=== PATIENT | male | born 1975 | race Caucasian/White ===

== ENCOUNTER 2017-05-24 20:21 | Emergency (ER) | payer BC ==
--- NOTE | 2017-05-24 21:38 | ED ---
Extremity Problem HPI - General Chief complaint: Extremity Problem,Nontraumatic Stated complaint: foot swelling/tingling Time Seen by Provider: 05/24/17 21:04 Source: patient, family Mode of arrival: ambulatory Limitations: no limitations - History of Present Illness Initial comments: 's patient is a 42-year-old man who presents to be evaluated for the complaint of bilateral lower extremity swelling (left greater than right) and tingling of the toes and fingers. The patient states that the symptoms have been coming on over the course of today. He denies other symptoms. The patient states that starting couple of days ago he had developed some back pain, he was seen here 2 days ago and told that he had sciatica and was given medication which has helped with the back pain, but then today he noted that when he took his socks off he had swelling of the lower parts of the legs and feet, which was greater on the left than right. Patient denies chest pain, abdominal pain, fevers or chills, cough, dyspnea, hemoptysis, palpitations or syncope. MD Complaint: extremity swelling Onset/Timin -: days(s) Location: bilateral lower extremity (Left greater than right) History of Same: No Radiation: none Quality: other (Tingling) Consistency: constant Improves with: nothing Worsens with: nothing Associated Symptoms: denies other symptoms - Related Data Home Medications Medication Instructions Recorded Confirmed Aspirin 81 mg PO DAILY 05/22/17 05/24/17 Hydrocodone/Acetaminophen [[place] 1 tab PO Q4HR PRN 05/24/17 05/24/17 5-325] Previous Rx's Medication Instructions Recorded Ibuprofen [Motrin] 600 mg PO Q6HR PRN #20 tab 05/22/17 Orphenadrine [Norflex] 100 mg PO Q12H #20 tablet.er 05/22/17 Allergies Allergy/AdvReac Type Severity Reaction Status Date / Time No Known Allergies Allergy Verified 05/24/17 20:40 Review of Systems ROS Statement: Those systems with pertinent positive or pertinent negative responses have been documented in the HPI. ROS Other: All systems not noted in ROS Statement are negative. Constitutional: Denies: fever, chills, weakness Respiratory: Denies: cough, dyspnea, hemoptysis Cardiovascular: Reports: as per HPI, edema. Denies: chest pain, palpitations, orthopnea, syncope Gastrointestinal: Denies: abdominal pain, nausea, vomiting Genitourinary: Denies: dysuria, frequency Musculoskeletal: Denies: back pain Skin: Denies: rash, lesions Neurological: Reports: as per HPI, paresthesias. Denies: headache, weakness, numbness Past Medical History Past Medical History: No Reported History History of Any Multi-Drug Resistant Organisms: None Reported Additional Past Surgical History / Comment(s): right eye surgery Past Psychological History: No Psychological Hx Reported Smoking Status: Never smoker Past Alcohol Use History: Occasional Past Drug Use History: None Reported General Exam Limitations: no limitations General appearance: alert, in no apparent distress Head exam: Present: atraumatic, normocephalic Eye exam: Present: normal appearance. Absent: scleral icterus, conjunctival injection Respiratory exam: Present: normal lung sounds bilaterally. Absent: respiratory distress, wheezes, rales, rhonchi, stridor Cardiovascular Exam: Present: regular rate, normal rhythm, normal heart sounds GI/Abdominal exam: Present: soft. Absent: distended, tenderness, guarding, rebound Extremities exam: Present: pedal edema (There is some bilateral edema of the lower portion of the lower legs which is greater on left than right.) Neurological exam: Present: alert. Absent: motor sensory deficit Skin exam: Present: warm, dry, intact, normal color. Absent: rash Course Vital Signs 05/24/17 05/25/17 05/25/17 20:30 00:00 01:16 Temperature 98.7 F 98.8 F 98.5 F Pulse Rate 85 67 68 Respiratory 18 18 20 Rate Blood Pressure 192/101 171/93 188/97 O2 Sat by Pulse 97 95 94 L Oximetry Medical Decision Making - Medical Decision Making patient's 42-year-old man with bilateral lower extremity swelling, left greater than right and also with paresthesias. His initial workup negative. Patient is given 1 dose of Lasix and to follow up with his primary physician for further evaluation and therapy. - Lab Data Result diagrams: 05/24/17 21:59 05/24/17 21:59 Lab Results 05/24/17 05/24/17 05/24/17 Range/Units 21:59 21:59 21:59 WBC 9.1 (3.8-10.6) k/uL RBC 5.31 (4.30-5.90) m/uL Hgb 14.2 (13.0-17.5) gm/dL Hct 43.5 (39.0-53.0) % MCV 81.9 (80.0-100.0) fL MCH 26.8 (25.0-35.0) pg MCHC 32.7 (31.0-37.0) g/dL RDW 14.6 (11.5-15.5) % Plt Count 270 (150-450) k/uL Neutrophils % 67 % Lymphocytes % 25 % Monocytes % 4 % Eosinophils % 2 % Basophils % 1 % Neutrophils # 6.1 (1.3-7.7) k/uL Lymphocytes # 2.3 (1.0-4.8) k/uL Monocytes # 0.4 (0-1.0) k/uL Eosinophils # 0.2 (0-0.7) k/uL Basophils # 0.1 (0-0.2) k/uL PT (9.0-12.0) sec INR (<1.2) APTT (22.0-30.0) sec Sodium 141 (137-145) mmol/L Potassium 4.1 (3.5-5.1) mmol/L Chloride 107 (98-107) mmol/L Carbon Dioxide 24 (22-30) mmol/L Anion Gap 10 mmol/L BUN 15 (9-20) mg/dL Creatinine 0.78 (0.66-1.25) mg/dL Est GFR (MDRD) Af Amer >60 (>60 ml/min/1.73 sqM) Est GFR (MDRD) Non-Af >60 (>60 ml/min/1.73 sqM) Glucose 125 H (74-99) mg/dL Calcium 9.3 (8.4-10.2) mg/dL Magnesium 1.9 (1.6-2.3) mg/dL Total Bilirubin 0.3 (0.2-1.3) mg/dL AST 24 (17-59) U/L ALT 37 (21-72) U/L Alkaline Phosphatase 65 (38-126) U/L NT-Pro-B Natriuret Pep 189 pg/mL Total Protein 7.5 (6.3-8.2) g/dL Albumin 4.2 (3.5-5.0) g/dL 05/24/17 Range/Units 21:59 WBC (3.8-10.6) k/uL RBC (4.30-5.90) m/uL Hgb (13.0-17.5) gm/dL Hct (39.0-53.0) % MCV (80.0-100.0) fL MCH (25.0-35.0) pg MCHC (31.0-37.0) g/dL RDW (11.5-15.5) % Plt Count (150-450) k/uL Neutrophils % % Lymphocytes % % Monocytes % % Eosinophils % % Basophils % % Neutrophils # (1.3-7.7) k/uL Lymphocytes # (1.0-4.8) k/uL Monocytes # (0-1.0) k/uL Eosinophils # (0-0.7) k/uL Basophils # (0-0.2) k/uL PT 9.8 (9.0-12.0) sec INR 1.0 (<1.2) APTT 25.2 (22.0-30.0) sec Sodium (137-145) mmol/L Potassium (3.5-5.1) mmol/L Chloride (98-107) mmol/L Carbon Dioxide (22-30) mmol/L Anion Gap mmol/L BUN (9-20) mg/dL Creatinine (0.66-1.25) mg/dL Est GFR (MDRD) Af Amer (>60 ml/min/1.73 sqM) Est GFR (MDRD) Non-Af (>60 ml/min/1.73 sqM) Glucose (74-99) mg/dL Calcium (8.4-10.2) mg/dL Magnesium (1.6-2.3) mg/dL Total Bilirubin (0.2-1.3) mg/dL AST (17-59) U/L ALT (21-72) U/L Alkaline Phosphatase (38-126) U/L NT-Pro-B Natriuret Pep pg/mL Total Protein (6.3-8.2) g/dL Albumin (3.5-5.0) g/dL Disposition Clinical Impression: Edema, Paresthesias Disposition: HOME SELF-CARE Condition: Fair Instructions: Leg Edema (ED) Referrals: Kike Cano MD [Primary Care Provider] - 1-2 days
[2017-05-24 22:11] LABS: Basophils # (A) 0.1 k/uL (0-0.2); Basophils % (A) 1 %; CH 27.4; CHCM 33.6; Eosinophils # (A) 0.2 k/uL (0-0.7); Eosinophils % (A) 2 %; HCT 43.5 % (39.0-53.0); HDW 2.48; HGB 14.2 gm/dL (13.0-17.5); Luc # (Auto) 0.13; Luc % (Auto) 1; Lymphocytes # (A) 2.3 k/uL (1.0-4.8); Lymphocytes % (A) 25 %; MCH 26.8 pg (25.0-35.0); MCHC 32.7 g/dL (31.0-37.0); MCV 81.9 fL (80.0-100.0); Mean Platelet Volume 6.9; Monocytes # (A) 0.4 k/uL (0-1.0); Monocytes % (A) 4 %; Neutrophils # (A) 6.1 k/uL (1.3-7.7); Neutrophils % (A) 67 %; RBC 5.31 m/uL (4.30-5.90); RDW 14.6 % (11.5-15.5); WBC 9.1 k/uL (3.8-10.6); WBC (Perox) 9.06
[2017-05-24 22:22] LABS: ALT 37 U/L (21-72); AST 24 U/L (17-59); Alkaline Phosphatase 65 U/L (38-126); Anion Gap 10 mmol/L; Blood Urea Nitrogen 15 mg/dL (9-20); Calcium 9.3 mg/dL (8.4-10.2); Carbon Dioxide 24 mmol/L (22-30); Chloride 107 mmol/L (98-107); Glucose 125 mg/dL (74-99); Magnesium 1.9 mg/dL (1.6-2.3); Non-African American GFR(MDRD) >60 (>60 ml/min/1.73 sqM); Potassium 4.1 mmol/L (3.5-5.1); Sodium 141 mmol/L (137-145); Total Bilirubin 0.3 mg/dL (0.2-1.3); Total Protein 7.5 g/dL (6.3-8.2)
--- NOTE | 2017-05-24 23:30 | US ---
EXAMINATION TYPE: US venous doppler duplex LE BI DATE OF EXAM: 05/24/2017 11:06 PM COMPARISON: NONE CLINICAL HISTORY: swelling. SIDE PERFORMED: Bilateral TECHNIQUE: The lower extremity deep venous system is examined utilizing real time linear array sonog micaela with graded compression, doppler sonography and color-flow sonography. VESSELS IMAGED: External Iliac Vein (EIV) Common Femoral Vein Deep Femoral Vein Greater Saphenous Vein * Femoral Vein Popliteal Vein Small Saphenous Vein * Proximal Calf Veins (* superficial vessels) Exam limited due to body habitus Right Leg: Negative for DVT Left Leg: Positive for DVT No evidence of DVT bilateral legs IMPRESSION: Negative exam. No evidence of deep venous thrombosis in both legs.
[2017-05-24] MEDS ORDERED: HEPARIN SODIUM,PORCINE/D5W PMX 25,000 UNIT in DEXTROSE/WATER 1 500ML.BAG IV SCH (23:45)
[2017-05-24] MEDS ORDERED: HEPARIN SODIUM,PORCINE 5,000 UNIT/ML 1 ML VIAL IV PRN (23:59)
[2017-05-24] MEDS ORDERED: HEPARIN SODIUM,PORCINE 10,000 UNIT/ML 1 ML VIAL IV ONE (23:59)
[2017-05-25 00:36] LABS: Partial Thromboplastin Time 25.2 sec (22.0-30.0); Prothrombin Time 9.8 sec (9.0-12.0)
[2017-05-25] MEDS ORDERED: FUROSEMIDE 10 MG/ML 2 ML VIAL IV STA (00:48)
[2017-05-25 01:19] VITALS: BP 188/97; PULSE 68; RESP 20; TEMP 98.5
== END 2017-05-25 01:20 | disposition home or self-care (01) ==
LOC: EC 20:21
DX: R60.0 Localized edema (principal); R20.2 Paresthesia of skin; Z79.82 Long term (current) use of aspirin
CPT/HCPCS: 36415; 83880; 80053; 83735; 85025; 85610; 85730; 93970; 99284; 96374; J1940

== ENCOUNTER → 2017-06-06 | Outpatient (CLI) | payer BC ==
--- NOTE | 2017-06-07 11:25 | ECHOF ---
Referral Reason:I10 Hypertention MEASUREMENTS -------- HEIGHT: 177.8 cm WEIGHT: 170.1 kg BP: 174/96 RVIDd: 3.1 cm (< 3.3) IVSd: 1.3 cm (0.6 - 1.1) LVIDd: 3.1 cm (3.9 - 5.3) LVPWd: 1.3 cm (0.6 - 1.1) IVSs: 1.7 cm LVIDs: 1.7 cm LVPWs: 1.4 cm LAESV Index (A-L): 20.20 ml/m Ao Diam: 3.2 cm (2.0 - 3.7) AV Cusp: 2.0 cm (1.5 - 2.6) LA Diam: 3.7 cm (2.7 - 3.8) MV E Sreekanth: 1.10 m/s MV DecT: 279 ms MV A Sreekanth: 0.89 m/s MV E/A Ratio: 1.24 RAP: 5.00 mmHg RVSP: 11.51 mmHg FINDINGS -------- Sinus rhythm with extra systolic beats. This was a technically difficult study with suboptimal views. The left ventricular size is normal. There is mild concentric left ventricular hypertrophy. Overa ll left ventricular systolic function is normal with, an EF between 60 - 65 %. The right ventricle is normal in size and function. Normal LA size by volume 22+/-6 ml/m2. The right atrium is normal in size. 1.5mg of Definity was utilized for enhancement of images Aortic valve is trileaflet and is mildly thickened. There is no evidence of aortic regurgitation. There is no evidence of aortic stenosis. The mitral valve leaflets are mildly thickened. There is trace mitral regurgitation. Trace tricuspid regurgitation present. Right ventricular systolic pressure is normal at < 35 mmHg. There is no evidence of pulmonary hypertension. The pulmonic valve was not well visualized. The aortic root size is normal. Normal inferior vena cava with normal inspiratory collapse consistent with estimated right atrial pre ssure of 5 mmHg. The pericardium is normal. There is no pericardial effusion. CONCLUSIONS -------- 1. Sinus rhythm with extra systolic beats. 2. This was a technically difficult study with suboptimal views. 3. The left ventricular size is normal. 4. There is mild concentric left ventricular hypertrophy. 5. Overall left ventricular systolic function is normal with, an EF between 60 - 65 %. 6. Normal LA size by volume 22+/-6 ml/m2. 7. 1.5mg of Definity was utilized for enhancement of images 8. Aortic valve is trileaflet and is mildly thickened. 9. The mitral valve leaflets are mildly thickened. 10. There is trace mitral regurgitation. 11. Trace tricuspid regurgitation present. 12. Right ventricular systolic pressure is normal at < 35 mmHg. 13. There is no evidence of pulmonary hypertension. 14. The pulmonic valve was not well visualized. 15. The aortic root size is normal. 16. There is no pericardial effusion. CANADIAN BACON TIER: Benito Cortez RDCS
== END | disposition home or self-care (01) ==
LOC: RADECHMAIN 16:08
PROVIDERS: ATTEND Family Medicine
DX: I08.1 Rheumatic disorders of both mitral and tricuspid valves (principal); I10 Essential (primary) hypertension
CPT/HCPCS: 93306; Q9957

== ENCOUNTER → 2020-07-15 | Outpatient (CLI) | payer BC ==
--- NOTE | 2020-07-15 23:36 | CONS ---
CONSULTATION DATE OF SERVICE: 07/15/2020 45-year-old gentleman has been evaluated in Sleep Center for possible obstructive sleep apnea-hypopnea syndrome. 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 HISTORY OF PRESENT ILLNESS SLEEP WAKE EVALUATION: SLEEP SCHEDULE: Patient usual sleep schedule is from 9 p.m. to 5 a.m. FALLING ASLEEP: No problems with falling asleep. No TV in bedroom. DURING SLEEP: He sleeps in different positions. According to the patient, he snores occasionally and maybe wakes up from sleep 1 time. No history of hypnagogic hallucinations, sleep paralysis or cataplexy. [place] Sleepiness Scale is 0. DURING THE DAY/SLEEP WAKE EVALUATION: Patient does not take naps during the day. PAST MEDICAL HISTORY: Positive for restriction of nasal breathing and asthma. MEDICATIONS: Aspirin 81 mg once a day. Flonase on a p.r.n. basis. PAST SURGICAL HISTORY: Right eye surgery for the mechanical trauma in 1995. SOCIAL HISTORY: Negative for smoking, alcohol consumption rarely. FAMILY HISTORY: Positive for asthma by his mother. REVIEW OF SYSTEMS: Snoring. PHYSICAL EXAM: gentleman without distress, BP in 1 measurement was 175/101 at the end of the appointment it was repeated and blood pressure was 126/73, HR 88, RR 15, height 5 feet 10 inches, weight 435, BMI 62.2, temperature 98.1 oxygen saturation at room air 99%. HEENT: Oropharynx practically normal position of soft palate white. Neck 19 inches in circumference. NECK: Supple, no JVD. Thyroid is not palpable. LUNGS: Clear to percussion and to auscultation. Good air exchange. No wheezing or rhonchi. HEART: S1, S2 regular. No murmurs, gallops, or rubs. ABDOMEN: Obese. Soft and nontender. Bowel sounds are present. No organomegaly appreciated. EXTREMITIES: No clubbing or cyanosis. RAILROAD SIGNAL TECHNICIAN: Awake, alert, and oriented X3. Cranial nerves 2 to 7 intact. There is no fasciculation or atrophy. noted. No focal deficits observed. IMPRESSION: 1. Snoring, occasionally awakenings from sleep, wide neck, obesity, possible obstructive sleep apnea-hypopnea syndrome. 2. Morbid obesity, BMI 62.2. 3. History of asthma. 4. History of restriction of nasal breathing. 5. Status post right eye mechanical trauma and surgery in 1995. PLAN: 1. Polysomnography for evaluation of patient's breathing during sleep. 2. CPAP/BiPAP titration if sleep study confirms obstructive sleep apnea-hypopnea syndrome. 3. Preferable position during sleep on the side. 4. No driving if patient feels any sleepiness. 5. I will see patient for follow up visit to explain results of testing and following plan. Tong Mares MD, PhD, FAASM Diplomat of [place] [employer] [place] [employer] Rivet Spinner of [facility] Thank you very much for referring this patient for consultation. Sincerely, Tong Mares MD, PhD, FAASM Diplomat of [place] [employer] [place] [employer] Rivet Spinner of [facility] MMODL / IJN: [id number] /
== END | disposition home or self-care (01) ==
LOC: SLEEP 16:43
PROVIDERS: ATTEND Internal Medicine
DX: R06.83 Snoring (principal); E66.01 Morbid (severe) obesity due to excess calories; Z68.44 Body mass index [BMI] 60.0-69.9, adult; Z87.09 Personal history of other diseases of the respiratory system; Z98.890 Other specified postprocedural states; Z79.51 Long term (current) use of inhaled steroids; Z79.82 Long term (current) use of aspirin
CPT/HCPCS: 99211

== ENCOUNTER → 2020-09-16 | Outpatient (CLI) | payer BC ==
--- NOTE | 2020-09-16 22:56 | SFUN ---
SLEEP CENTER FOLLOW UP NOTE DATE OF SERVICE: 09/16/2020 This is a 45-year-old gentleman who has been followed in the sleep center for treatment of extremely severe obstructive sleep apnea-hypopnea syndrome. Recently the patient had a home sleep apnea test and CPAP titration. After that he received his CPAP unit, and today is his first visit on treatment with CPAP. I discussed results of the sleep study with the patient in detail. Sleep study showed severe sleep apnea-hypopnea syndrome. The patient is able to use CPAP equipment every night. He sometimes has condensation of water in the mask. I checked his CPAP unit. CPAP pressure is 15 cm of water. Usage is 30/30 nights for more than 4 hours with average usage 8 hours per night. Leak is only 4 L/minute, which is absolutely normal. Apnea-hypopnea index only 0.7, which is normal. MEDICATIONS: Flonase, aspirin 81 mg. [place] Sleepiness Scale is 1. PHYSICAL EXAMINATION: GENERAL: A pleasant patient in no distress. VITAL SIGNS: BP 163/73, HR 81, RR 20, weight 430.6, temperature 97.4, oxygen saturation at room air 98%. HEENT: PERRLA, EOMI. Evaluation of oropharynx showed tongue protrudes midline. NECK: Supple. No JVD. Thyroid is not palpable. LUNGS: Clear to percussion and to auscultation. Good air exchange. No wheezing or rhonchi. HEART: S1, S2 regular. No murmurs, gallops or rubs. ABDOMEN: Obese. EXTREMITIES: No clubbing or cyanosis. COMPENSATION MANAGER: Awake, alert, and oriented X3. Cranial nerves 2 to 7 intact. There is no fasciculation or atrophy. noted. No focal deficits observed. IMPRESSION: 1. Severe obstructive sleep apnea-hypopnea syndrome. Patient demonstrated 100% compliance with treatment, benefitting from treatment. 2. Morbid obesity. 3. History of asthma. 4. Restriction of nasal breathing. 5. Status post right eye mechanical trauma and surgery in 1995. PLAN: 1. Patient will continue to use PAP equipment every night for the whole night. 2. Sleep hygiene with regular time in bed for at least 7-1/2 to 8 hours. 3. Precautions related to driving. No driving if feeling sleepiness. 4. I will maintain all necessary prescription for PAP supplies including mask, tube, filters. 5. Watching weight. 6. No driving if feeling sleepiness. 7. Follow-up visit in 6 months or earlier if patient has any problems. 8. I discussed with the patient the possibility of adjusting humidity slightly down; apparently automatic regimen but could be changed to manual and decrease heat and humidity to prevent condensation of water in the mask. Thank you very much for allowing me to participate in the management of your patient. Sincerely, Tong Mares MD, PhD, FAASM Diplomat of [place] [employer] [place] [employer] Email Deployment Specialist of [facility] [place] MMODL / MACARION: [id number] /
== END ==
LOC: SLEEP 13:14
PROVIDERS: ATTEND Internal Medicine
DX: G47.33 Obstructive sleep apnea (adult) (pediatric) (principal); E66.01 Morbid (severe) obesity due to excess calories; R06.09 Other forms of dyspnea; Z82.5 Family history of asthma and other chronic lower respiratory diseases; Z87.828 Personal history of other (healed) physical injury and trauma; Z98.890 Other specified postprocedural states; Z68.41 Body mass index [BMI] 40.0-44.9, adult

== ENCOUNTER → 2021-04-08 | Outpatient (CLI) | payer BC ==
--- NOTE | 2021-04-08 21:30 | SFUN ---
SLEEP CENTER FOLLOW UP NOTE DATE OF SERVICE: 04/08/2021 This 45-year-old gentleman has been followed in Sleep Center for treatment of obstructive sleep apnea-hypopnea syndrome. The patient continues to use CPAP equipment every night. He does have problems related to the humidity; has too much water in his mask. I reviewed with the patient the position of the machine. The machine should stay lower than his head and the tube has to be mostly directly going to the machine. I also reviewed with the patient in detail all adjustments related to humidifier and the tube, and I taught the patient how to adjust this according to his feeling. [place] Sleepiness Scale today is zero. I checked his CPAP unit. CPAP pressure is 15 cm of water. Usage is 30/30 nights and 29/30 nights for more than 4 hours with average usage is 7.4 hours per night. Leak is 4 L/minute, which is normal. Apnea-hypopnea index is 0.5, which is normal. MEDICATIONS: Lisinopril. PHYSICAL EXAMINATION: GENERAL: Pleasant patient in no distress. VITAL SIGNS: BP 129/83, HR 75, RR 15, height 5 feet 9-1/2 inches, weight 435 pounds, body mass index 64.6, temperature 97.4, oxygen saturation at room air 99%. HEENT: PERRLA, EOMI, evaluation of oropharynx showed tongue protrudes midline. Low position of soft palate. NECK: Supple, no JVD. Thyroid is not palpable. LUNGS: Clear to percussion and to auscultation. Good air exchange. No wheezing or rhonchi. HEART: S1, S2 regular. No murmurs, gallops, or rubs. ABDOMEN: Obese. EXTREMITIES: No clubbing or cyanosis. SUPPLY PERSON: Awake, alert, and oriented X3. Cranial nerves 2 to 7 intact. There is no fasciculation or atrophy. noted. No focal deficits observed. IMPRESSION: 1. Severe obstructive sleep apnea-hypopnea syndrome. Patient demonstrated 100% compliance with treatment, benefitting from treatment. 2. Morbid obesity. 3. History of asthma. 4. Restriction of nasal breathing. 5. Status post right trauma and surgery in 1995. PLAN: 1. Humidity in humidifier was adjusted down to the level of 2. 2. Patient will adjust the position of the machine and position of the tube. 3. The patient should remove all water out of the box in the morning and let all equipment dry. 4. Patient will continue to use PAP equipment every night for the whole night. 5. Sleep hygiene with regular time in bed for at least 7-1/2 to 8 hours. 6. Precautions related to driving. No driving if feeling sleepiness. 7. I will maintain all necessary prescription for PAP supplies including mask, tube, filters. 8. Watching weight. 9. Follow-up visit in 6 months or earlier if patient has any problems. I spent 30 minutes with the patient and documentation. Thank you very much for allowing me to participate in the management of your patient. Sincerely, Tong Mares MD, PhD, FAASM Diplomat of [place] [employer] Sleep Medicine Board of [place] [employer] Spool Fixer of [facility] [place] ROSANNE / YOHANNES: [id number] /
== END | disposition home or self-care (01) ==
LOC: SLEEP 16:17
PROVIDERS: ATTEND Internal Medicine
DX: G47.33 Obstructive sleep apnea (adult) (pediatric) (principal); E66.09 Other obesity due to excess calories; Z82.5 Family history of asthma and other chronic lower respiratory diseases

== ENCOUNTER → 2021-10-07 | Outpatient (CLI) | payer BC ==
--- NOTE | 2021-10-07 19:09 | SFUN ---
SLEEP CENTER FOLLOW UP NOTE DATE OF SERVICE: 10/07/2021 This 46-year-old gentleman has been followed in Sleep Center for treatment of obstructive sleep apnea-hypopnea syndrome. The patient continues to use his CPAP equipment every night for the whole night, getting his supplies on time. No snoring with the machine. [place] Sleepiness Scale today is only 1, which is absolutely normal. I checked his CPAP unit. Pressure is 15 cm of water. Usage is 30/30 nights for the last month, average 7.8 hours per night. Leak is 2 L/minute, apnea-hypopnea index 0.6. I also checked usage of the machine for the whole year. For the year, usage is 364/365 nights and 362/365 nights more than 4 hours, average again 7.8 hours per night, which is extremely great compliance. Leak is 4 L/minute. Apnea-hypopnea index is the same, 0.6; absolutely normal. MEDICATIONS: 1. Lisinopril once a day. 2. Aspirin 81 mg once a day. PHYSICAL EXAMINATION: GENERAL: Pleasant patient in no distress. VITAL SIGNS: BP 108/58, HR 68, RR 18, weight 452.2 pounds, temperature 97.6, oxygen saturation at room air 98%. Height 5 feet 9-1/2 inches. Patient's weight increased by about 17 pounds. HEENT: PERRLA, EOMI, evaluation of oropharynx showed tongue protrudes midline. Low position of soft palate. NECK: Supple, no JVD. Thyroid is not palpable. LUNGS: Clear to percussion and to auscultation. Good air exchange. No wheezing or rhonchi. HEART: S1, S2 regular. No murmurs, gallops, or rubs. ABDOMEN: Obese. EXTREMITIES: No clubbing or cyanosis. AIRPORT OPERATIONS DUTY MANAGER: Awake, alert, and oriented X3. Cranial nerves 2 to 7 intact. There is no fasciculation or atrophy. noted. No focal deficits observed. IMPRESSION: 1. Severe obstructive sleep apnea-hypopnea syndrome. Patient demonstrated 100% compliance with treatment. Absolutely normal respiration on CPAP. 2. Obesity. 3. History of asthma. 4. Restriction of nasal breathing. 5. Status post right eye surgery for trauma in 1995. PLAN: 1. Patient will continue to use PAP equipment every night for the whole night. 2. Sleep hygiene with regular time in bed for at least 7-1/2 to 8 hours. 3. Precautions related to driving. No driving if feeling sleepiness. 4. I will maintain all necessary prescription for PAP supplies including mask, tube, filters. 5. Watching weight. 6. Follow-up visit in 6 months or earlier if patient has any problems. Thank you very much for allowing me to participate in the management of your patient. Sincerely, Tong Mares MD, PhD, FAASM Diplomat of [place] [employer] Sleep Medicine Board of [place] [employer] Historic Site Administrator of [facility] [place] MMODL / IJN: [id number] /
== END ==
LOC: SLEEP 16:33
PROVIDERS: ATTEND Internal Medicine
DX: G47.30 Sleep apnea, unspecified (principal); E66.9 Obesity, unspecified; Z87.09 Personal history of other diseases of the respiratory system; Z48.810 Encounter for surgical aftercare following surgery on the sense organs

== ENCOUNTER → 2023-12-27 | Outpatient (CLI) | payer BC ==
--- NOTE | 2023-12-27 11:02 | US ---
EXAMINATION TYPE: US venous doppler duplex LE LT DATE OF EXAM: 12/27/2023 10:12 AM COMPARISON: CLINICAL INDICATION: Male, 48 years old with history of R22.40LOCALIZED SWELLING, MASS AND LUMP, UNSP ECIFI; Patient states swelling at knee. On aspirin. SIDE PERFORMED: Left TECHNIQUE: The lower extremity deep venous system is examined utilizing real time linear array sonog micaela with graded compression, doppler sonography and color-flow sonography. VESSELS IMAGED: Common Femoral Vein Deep Femoral Vein Greater Saphenous Vein * Femoral Vein Popliteal Vein Small Saphenous Vein * Proximal Calf Veins (* superficial vessels) Suboptimal due to patient body habitus Left Leg: Negative for DVT IMPRESSION: 1. Limited exam demonstrates no diagnostic evidence of DVT.
== END | disposition home or self-care (01) ==
LOC: RADUSWWP 09:42
PROVIDERS: ATTEND Family Medicine
DX: R22.40 Localized swelling, mass and lump, unspecified lower limb (principal)